=== PATIENT | male | born 1970 | race Caucasian/White ===

== ENCOUNTER 2024-12-01 00:28 | Emergency (ER) | payer OTHER ==
[~2024-12-01] VITALS: Ht 175.2 cm; Wt 99.8 kg
[2024-12-01] MEDS ORDERED: Bacitracin Zinc 14 GM TUBE T ONE (00:50)
[2024-12-01] MEDS ORDERED: Amoxicillin/Clavulanate Pota 875 MG TAB PO ONE (00:50)
[2024-12-01] MEDS ORDERED: Tdap Vaccine 0.5 ML SYR (Adult Vaccine) IM ONE (00:50)
[2024-12-01] MEDS ORDERED: AMOX-CLAV 875-1 EACH PO (01:12)
== END 2024-12-01 01:05 | disposition home or self-care (01) ==
LOC: ED 00:28
DX: S61.511A Laceration without foreign body of right wrist, initial encounter (principal); W54.0XXA Bitten by dog, initial encounter; Y93.89 Activity, other specified; Y92.89 Other specified places as the place of occurrence of the external cause; Y99.8 Other external cause status